=== PATIENT | female | born 1975 | race Caucasian/White ===

== ENCOUNTER 2017-07-04 17:31 | Emergency (ER) | payer OTHER, MEDICARE ==
[2017-07-04] MEDS ORDERED: Sodium Chloride 0.9% 1,000 ML IV ONE (17:38)
[2017-07-04] MEDS ORDERED: Sodium Chloride 0.9% 10 ML Syringe FLUSH PRN (17:38)
[2017-07-04 18:31] LABS: CHLORIDE,CL 101 mmol/L (98-107); SODIUM,NA 138 mmol/L (136-145)
[2017-07-04] MEDS ORDERED: Metoclopramide 10 MG/2 ML SDV IVPUSH ONE (18:38)
[2017-07-04] MEDS ORDERED: diphenhydrAMINE 50 MG/ML SDV IVPUSH ONE (18:40)
--- NOTE | 2017-07-04 18:45 | EDM.PDOC ---
ED HPI GENERAL MEDICAL PROBLEM - General Chief Complaint: Headache Stated Complaint: migraine Time Seen by Provider: 07/04/17 17:33 Source of Information: Reports: Patient, Family, Old Records, RN, RN Notes Reviewed History Limitations: Reports: No Limitations - History of Present Illness INITIAL COMMENTS - FREE TEXT/NARRATIVE: Patient presents the emergency room at [facility] complaining of a headache that started about 3 days ago. The patient states she does have a history of migraines, however this is not documented in her history. The patient states this headache seems to be lasting longer than usual. The patient is on chronic oxycodone at home, which does not seem to be helping. The patient has a long- standing complexed medical history, including sarcoidosis, diabetes, hyperlipidemia, fatty liver disease, hypertension, Guillain-Nair syndrome. The patient has not had any recent changes in medications. The patient states that she feels somewhat nauseated but she also has nausea chronically. The patient denies any visual field disturbances. The patient denies any trouble with ambulation or balance. The patient states her headache is globally in nature. The patient denies any chest pain. The patient has shortness of breath chronically due to her sarcoidosis. The patient was recently seen by a neurologist for results of an EMG which showed demyelinization of the bilateral upper extremities. The patient does have multiple allergies. The patient denies any focal neurological deficits. In reviewing the patient's medical record, her medication list show she is on Topamax, it is unclear she is taking this for chronic headaches or not. [place] PDMP accessed and report reviewed. Onset Date: 07/02/17 Duration: Constant Location: Reports: Head Quality: Reports: Dull, Pressure Severity: Moderate Improves with: Reports: None Worsens with: Reports: Movement Context: Denies: Sick Contact, Trauma Associated Symptoms: Reports: Nausea/Vomiting migraine headache Pain Score (Numeric/FACES): 9 - Related Data Allergies Allergy/AdvReac Type Severity Reaction Status Date / Time acetaminophen [From Vicodin] Allergy Other Verified 04/08/15 10:35 atorvastatin Allergy Other Verified 07/04/17 17:46 fentanyl Allergy Other Verified 04/08/15 10:35 guaifenesin Allergy Other Verified 04/08/15 10:35 hydrocodone bitartrate Allergy Other Verified 04/08/15 10:35 [From Vicodin] hydromorphone Allergy Other Verified 07/04/17 17:46 latex Allergy Cannot Verified 07/04/17 17:46 Remember Penicillins Allergy Anaphylactic Verified 04/08/15 10:35 Shock sesame oil Allergy Other Verified 04/08/15 10:35 Mcydyqv-Wlb-Tqr Reductase Allergy Cannot Verified 07/04/17 17:46 Inhibitor Remember Home Meds: Home Meds Gabapentin [Neurontin] 900 mg PO TID 04/08/15 [History] Benzonatate [Tessalon Perle] 100 mg PO TID PRN 07/04/17 [History] Biotin 1 mg PO DAILY 07/04/17 [History] Cholecalciferol (Vitamin D3) [Vitamin D3] 5,000 unit PO DAILY 07/04/17 [History] ClonazePAM [KlonoPIN] 0.5 mg PO BID PRN 07/04/17 [History] Cyclobenzaprine [Flexeril] 10 mg PO DAILY PRN 07/04/17 [History] EPINEPHrine [Auvi-Q] 0.3 mg IM ONETIME PRN 07/04/17 [History] Folic Acid 1 mg PO DAILY 07/04/17 [History] Furosemide [Lasix] 20 mg PO DAILY 07/04/17 [History] Ibuprofen 800 mg PO Q6H PRN 07/04/17 [History] Lisinopril 10 mg PO DAILY 07/04/17 [History] Polyethylene Glycol 3350 [MiraLAX] 17 gm PO DAILY 07/04/17 [History] Potassium Gluconate [Potassium] 595 mg PO DAILY 07/04/17 [History] Topiramate [Topamax] 50 mg PO BID 07/04/17 [History] buPROPion HCl [Wellbutrin Xl] 150 mg PO DAILY 07/04/17 [History] metFORMIN [Glucophage XR] 1,000 mg PO DAILY 07/04/17 [History] metFORMIN [Glucophage XR] 500 mg PO WITHDINNER 07/04/17 [History] oxyCODONE HCl/Acetaminophen [Percocet 5-325 mg Tablet] 1 each PO Q6H PRN [History] Past Medical History HEENT History: Reports: Allergic Rhinitis, Impaired Vision Cardiovascular History: Reports: Cardiomyopathy, Hypertension, Other (See Below) Other Cardiovascular History: "FLUID AROUND HEART" ON FUROSEMIDE Respiratory History: Reports: Pulmonary Fibrosis, Sleep Apnea, SOB, Other (See Below) Other Respiratory History: sarcoidosis of lung, restrictive lung mechanics due to neuromuscular disease Gastrointestinal History: Reports: Cholelithiasis, Other (See Below) Other Gastrointestinal History: fatty liver disease, non-alcoholic, hepatic steatosis, CONSTRUCTION SCHEDULER History: Reports: Polycystic Ovaries, Other (See Below) Other OB/BYN History: pelvic pain Musculoskeletal History: Reports: Connective Tissue Disease, Other (See Below) Other Musculoskeletal History: carpal tunnel syndrome on left Neurological History: Reports: Headaches, Chronic, Migraines, Other (See Below) Other Neuro History: chronic pain, neuropathy, sarcoid myopathy, diabetic neuropathy, axonal polyneuropathy Psychiatric History: Reports: Anxiety, Depression, Other (See Below) Other Psychiatric History: borderline 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 Endocrine/Metabolic History: Reports: Diabetes, Type II, Obesity/BMI 30+, Vitamin D Deficiency, Other (See Below) Other Endocrine/Metabolic History: elevated serum protein level, low serum cortisol level Hematologic History: Reports: B12 Deficiency Immunologic History: Reports: Immunosuppression Dermatologic History: Reports: None - Past Surgical History Head Surgeries/Procedures: Reports: None Respiratory Surgical History: Reports: Other (See Below) Social & Family History - Tobacco Use Smoking Status *Q: Former Smoker Used Tobacco, but Quit: Yes Month/Year Tobacco Last Used: 2005 Second Hand Smoke Exposure: No - Recreational Drug Use Recreational Drug Use: No Drug Use in Last 12 Months: No ED ROS GENERAL - Review of Systems Review Of Systems: See Below Constitutional: Reports: Chills, Weakness (chronic). Denies: Fever Respiratory: Reports: Shortness of Breath (chronic). Denies: Cough Cardiovascular: Denies: Chest Pain, Palpitations GI/Abdominal: Reports: Nausea. Denies: Abdominal Pain, Diarrhea, Vomiting Skin: Reports: No Symptoms Neurological: Reports: Headache. Denies: Dizziness, Numbness, Paresthesia, Tingling - Physical Exam Exam: See Below Exam Limited By: No Limitations General Appearance: Alert, No Apparent Distress Eye Exam: Bilateral Eye: EOMI, Normal Inspection, PERRL Ears: Normal External Exam, Normal Canal, Normal TMs Head Exam: Atraumatic, Normocephalic Neck: Supple Respiratory/Chest: No Respiratory Distress, Lungs Clear, Normal Breath Sounds Cardiovascular: Normal Peripheral Pulses, Regular Rate, Rhythm GI/Abdominal: Soft, Non-Tender, Abnormal Bowel Sounds (Hypoactive) Neuro Exam (Abbreviated): Alert, Oriented, Other (appears drowsy, possibly from chronic narcotic use) Skin Exam: Warm, Dry, Intact, Normal Color Course - Vital Signs Last Recorded V/S: Last Vital Signs Temp 37.8 C 07/04/17 17:41 Pulse 102 H 07/04/17 17:41 Resp 20 07/04/17 17:41 BP 131/79 07/04/17 19:19 Pulse Ox 100 07/04/17 17:41 - Orders/Labs/Meds Orders: Active Orders 24 hr Category Date Time Status Chest 2V [CR] Stat Exams 07/04/17 17:39 Taken CULTURE BLOOD [BC] Stat Lab 07/04/17 18:01 Received CULTURE BLOOD [BC] Stat Lab 07/04/17 18:09 Received Sodium Chloride 0.9% [Saline Flush] Med 07/04/17 17:38 Active 10 ml FLUSH ASDIRECTED PRN Blood Culture x2 Reflex Set [OM.PC] Stat Oth 07/04/17 17:38 Ordered Peripheral IV Insertion Adult [OM.PC] Routine Oth 07/04/17 17:38 Ordered Medication Orders Sodium Chloride (Saline Flush) 10 ml FLUSH ASDIRECTED PRN PRN Reason: Keep Vein Open Labs: Laboratory Tests 07/04/17 07/04/17 07/04/17 Range/Units 18:01 18:01 18:01 WBC 5.6 (4.0-10.0) x10^3/uL RBC 4.02 (4.00-5.50) x10^6/uL Hgb 12.6 (12.0-16.0) g/dL Hct 36.7 (33.0-47.0) % MCV 91.3 D (78.0-93.0) fL MCH 31.3 (26.0-32.0) pg MCHC 34.3 (32.0-36.0) g/dL RDW Coeff of Shanice 13.3 (10.0-15.0) % Plt Count 208 (130-400) x10^3/uL Neut % (Auto) 51.5 (50.0-80.0) % Lymph % (Auto) 40.1 (25.0-50.0) % [place] % (Auto) 6.6 (2.0-11.0) % Eos % (Auto) 1.6 (0.0-4.0) % Baso % (Auto) 0.2 (0.2-1.2) % Sodium 138 (136-145) mmol/L Potassium 3.6 (3.5-5.1) mmol/L Chloride 101 (98-107) mmol/L Carbon Dioxide 26 (21-32) mmol/L BUN 13 (7-18) mg/dL Creatinine 0.8 (0.55-1.02) mg/dL Est Cr Clr Drug Dosing 78.23 mL/min Estimated GFR (MDRD) > 60 Glucose 159 H (74-106) mg/dL Lactic Acid 1.9 (0.4-2.0) mmol/L Calcium 9.3 (8.5-10.1) mg/dL Magnesium 1.8 (1.8-2.4) mg/dL C-Reactive Protein < 0.2 (<=0.9) mg/dL Meds: Medications Generic Name Dose Route Start Last Admin Trade Name Freq PRN Reason Stop Dose Admin Sodium Chloride 10 ml 07/04/17 17:38 Saline Flush FLUSH ASDIRECTED PRN Keep Vein Open Discontinued Medications Generic Name Dose Route Start Last Admin Trade Name Freq PRN Reason Stop Dose Admin Diphenhydramine HCl 50 mg 07/04/17 18:40 07/04/17 18:44 Benadryl IVPUSH 07/04/17 18:41 50 mg ONETIME ONE Administration Sodium Chloride 1,000 mls @ 999 mls/hr 07/04/17 17:38 07/04/17 18:05 Normal Saline IV 07/04/17 18:38 999 mls/hr ONETIME ONE Administration Chlorpromazine HCl 50 mg/ 52 mls @ 50 mls/hr 07/04/17 18:38 07/04/17 18:58 Sodium Chloride IV 07/04/17 19:40 50 mls/hr ONETIME ONE Administration Metoclopramide HCl 10 mg 07/04/17 18:38 07/04/17 18:54 Reglan IVPUSH 07/04/17 18:39 10 mg ONETIME ONE Administration Departure - Departure Time of Disposition: 20:05 Disposition: Home, Self-Care 01 Condition: Good Clinical Impression: Migraine Qualifiers: Migraine type: unspecified Status migrainosus presence: without status migrainosus Intractability: not intractable Qualified Code(s): G43.909 - Migraine, unspecified, not intractable, without status migrainosus - Discharge Information Instructions: Migraine Headache Referrals: Boubacar Collier MD [Ordering Only Provider] - Forms: ED Department Discharge Additional Instructions: 1. Stay well hydrated and rest 2. No changes with any home medications at this time 3. Recommend follow up with Primary if symptoms persist; may contact through [employer] 4. Call with any questions or concerns - Problem List Review Problem List Initiated/Reviewed/Updated: Yes - My Orders Last 24 Hours: My Active Orders 07/04/17 17:38 Sodium Chloride 0.9% [Saline Flush] 10 ml FLUSH ASDIRECTED PRN Blood Culture x2 Reflex Set [OM.PC] Stat Peripheral IV Insertion Adult [OM.PC] Routine 07/04/17 17:39 Chest 2V [CR] Stat 07/04/17 18:01 CULTURE BLOOD [BC] Stat 07/04/17 18:09 CULTURE BLOOD [BC] Stat - Assessment/Plan Last 24 Hours: My Active Orders 07/04/17 17:38 Sodium Chloride 0.9% [Saline Flush] 10 ml FLUSH ASDIRECTED PRN Blood Culture x2 Reflex Set [OM.PC] Stat Peripheral IV Insertion Adult [OM.PC] Routine 07/04/17 17:39 Chest 2V [CR] Stat 07/04/17 18:01 CULTURE BLOOD [BC] Stat 07/04/17 18:09 CULTURE BLOOD [BC] Stat Assessment:: Acute Migraine on chronic Plan: Labs and x-rays were reviewed with the patient. No acute etiology found for the patient's migraine. The patient was given IV Thorazine, Reglan, and Benadryl. The patient states after the infusion that she still has a headache. Given the patient's complex medical history and multiple medications, I will hold off on making any changes at this point and defer this to the patient's primary care provider. I do not feel that the patient has any acute emergency at this time with her headache As the patient has chronic headaches in the past. I discussed with the patient that she should follow up with her primary care provider if the headaches continue. The patient was hemodynamically stable at discharge.
[2017-07-04 19:19] VITALS: BP 131/79
== END 2017-07-04 20:13 | disposition home or self-care (01) ==
LOC: VM.ED 17:31
DX: G43.909 Migraine, unspecified, not intractable, without status migrainosus (principal); I10 Essential (primary) hypertension; E11.40 Type 2 diabetes mellitus with diabetic neuropathy, unspecified; E11.42 Type 2 diabetes mellitus with diabetic polyneuropathy; Z91.040 Latex allergy status; Z88.0 Allergy status to penicillin; Z88.5 Allergy status to narcotic agent; Z88.8 Allergy status to other drugs, medicaments and biological substances; Z88.6 Allergy status to analgesic agent; Z91.048 Other nonmedicinal substance allergy status; Z79.899 Other long term (current) drug therapy; Z79.84 Long term (current) use of oral hypoglycemic drugs; Z87.891 Personal history of nicotine dependence
CPT/HCPCS: 36415; 71046; 80048; 83605; 83735; 85025; 86140; 87040; 96361; 96365; 96375; 99284; J1200; J2765; J3230; J7030; J7050

== ENCOUNTER 2017-10-22 11:45 | Emergency (ER) | payer OTHER, MEDICARE ==
[2017-10-22] MEDS ORDERED: Prochlorperazine 10 MG/2 ML SDV IV ONE (12:30)
[2017-10-22] MEDS ORDERED: Sodium Chloride 0.9% 1,000 ML IV ONE (12:30)
[2017-10-22] MEDS ORDERED: diphenhydrAMINE 50 MG/ML SDV IVPUSH ONE (12:30)
[2017-10-22] MEDS ORDERED: Ondansetron 4 MG/2 ML SDV IVPUSH ONE (12:30)
[2017-10-22] MEDS ORDERED: Sodium Chloride 0.9% 10 ML Syringe FLUSH PRN (12:30)
--- NOTE | 2017-10-22 13:25 | EDM.PDOC ---
ED HPI GENERAL MEDICAL PROBLEM - General Chief Complaint: Headache Stated Complaint: MIGRAINE Time Seen by Provider: 10/22/17 12:25 Source of Information: Reports: Patient History Limitations: Reports: No Limitations - History of Present Illness INITIAL COMMENTS - FREE TEXT/NARRATIVE: Patient with history of migraine headache presents with the same that started yesterday. Was a recent recipient of IVIG for her multiple comorbid conditions including sarcoidosis. She reports the headache to start in the neck and these are her usual. They are throbbing with pressure to both sides. She states sounds and light worsen the headache. She states she has been told they are tension migraines. No nausea, vomiting, SOB. She does state her right chest hurts worse than it usually does. She describes it as an ache. Onset: Gradual Onset Date: 10/21/17 Duration: Intermittent Location: Reports: Head Severity: Moderate Improves with: Reports: Medication, Rest Worsens with: Reports: Movement Headache Pain Score (Numeric/FACES): 9 - Related Data Allergies Allergy/AdvReac Type Severity Reaction Status Date / Time atorvastatin Allergy Other Verified 10/22/17 11:58 fentanyl Allergy Other Verified 10/22/17 11:58 guaifenesin Allergy Other Verified 10/22/17 11:58 hydrocodone bitartrate Allergy Other Verified 10/22/17 11:58 [From Vicodin] hydromorphone Allergy Other Verified 10/22/17 11:58 latex Allergy Cannot Verified 10/22/17 11:58 Remember Penicillins Allergy Anaphylactic Verified 10/22/17 11:58 Shock sesame oil Allergy Other Verified 10/22/17 11:58 Nbscirr-Vjd-Obq Reductase Allergy Cannot Verified 10/22/17 11:58 Inhibitor Remember acetaminophen [From Vicodin] AdvReac Intermediate Other Verified 10/22/17 11:58 Home Meds: Home Meds Gabapentin [Neurontin] 900 mg PO TID 04/08/15 [History] Biotin 1 mg PO DAILY 07/04/17 [History] Cholecalciferol (Vitamin D3) [Vitamin D3] 5,000 unit PO DAILY 07/04/17 [History] ClonazePAM [KlonoPIN] 0.5 mg PO BID PRN 07/04/17 [History] Cyclobenzaprine [Flexeril] 10 mg PO DAILY PRN 07/04/17 [History] EPINEPHrine [Auvi-Q] 0.3 mg IM ONETIME PRN 07/04/17 [History] Folic Acid 1 mg PO DAILY 07/04/17 [History] Furosemide [Lasix] 20 mg PO DAILY 07/04/17 [History] Ibuprofen 800 mg PO Q6H PRN 07/04/17 [History] Lisinopril 10 mg PO DAILY 07/04/17 [History] Polyethylene Glycol 3350 [MiraLAX] 17 gm PO DAILY PRN 07/04/17 [History] Potassium Gluconate [Potassium] 595 mg PO DAILY 07/04/17 [History] Topiramate [Topamax] 50 mg PO BID 07/04/17 [History] buPROPion HCl [Wellbutrin Xl] 150 mg PO DAILY 07/04/17 [History] metFORMIN [Glucophage XR] 500 mg PO BID 07/04/17 [History] oxyCODONE HCl/Acetaminophen [Percocet 5-325 mg Tablet] 1 each PO Q6H PRN [History] Past Medical History HEENT History: Reports: Allergic Rhinitis, Impaired Vision Cardiovascular History: Reports: Cardiomyopathy, Hypertension, Other (See Below) Other Cardiovascular History: "FLUID AROUND HEART" ON FUROSEMIDE Respiratory History: Reports: Pulmonary Fibrosis, Sleep Apnea, SOB, Other (See Below) Other Respiratory History: sarcoidosis of lung, restrictive lung mechanics due to neuromuscular disease Gastrointestinal History: Reports: Cholelithiasis, Other (See Below) Other Gastrointestinal History: fatty liver disease, non-alcoholic, hepatic steatosis, LEAK PATCHER History: Reports: Polycystic Ovaries, Other (See Below) Other LEAK PATCHER History: pelvic pain Musculoskeletal History: Reports: Connective Tissue Disease, Other (See Below) Other Musculoskeletal History: carpal tunnel syndrome on left Neurological History: Reports: Headaches, Chronic, Migraines, Other (See Below) Other Neuro History: chronic pain, neuropathy, sarcoid myopathy, diabetic neuropathy, axonal polyneuropathy Psychiatric History: Reports: Anxiety, Depression, Other (See Below) Other Psychiatric History: borderline 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 Endocrine/Metabolic History: Reports: Diabetes, Type II, Obesity/BMI 30+, Vitamin D Deficiency, Other (See Below) Other Endocrine/Metabolic History: elevated serum protein level, low serum cortisol level Hematologic History: Reports: B12 Deficiency Immunologic History: Reports: Immunosuppression Dermatologic History: Reports: None - Past Surgical History Head Surgeries/Procedures: Reports: None Respiratory Surgical History: Reports: Other (See Below) ED ROS GENERAL - Review of Systems Review Of Systems: See Below Constitutional: Reports: No Symptoms HEENT: Reports: No Symptoms Respiratory: Reports: No Symptoms Cardiovascular: Reports: Chest Pain (described as chest pressure, worse with inspiration) Endocrine: Reports: No Symptoms GI/Abdominal: Reports: No Symptoms : Reports: No Symptoms Musculoskeletal: Reports: No Symptoms Skin: Reports: No Symptoms Neurological: Reports: Headache Psychiatric: Reports: No Symptoms Hematologic/Lymphatic: Reports: No Symptoms Immunologic: Reports: No Symptoms - Physical Exam Exam: See Below Exam Limited By: No Limitations General Appearance: Alert, WD/WN, Mild Distress Eye Exam: Bilateral Eye: EOMI, PERRL Ears: Normal TMs Head Exam: Atraumatic, Normocephalic Neck: Normal Inspection, Supple, Non-Tender, Full Range of Motion Respiratory/Chest: No Respiratory Distress, Lungs Clear, Normal Breath Sounds, No Accessory Muscle Use, Chest Non-Tender Cardiovascular: Normal Peripheral Pulses, Regular Rate, Rhythm, No Edema, No Gallop, No JVD, No Murmur, No Rub GI/Abdominal: Normal Bowel Sounds, Soft, Non-Tender, No Organomegaly, No Distention, No Abnormal Bruit, No Mass Neuro Exam (Abbreviated): Alert, Oriented, CN II-XII Intact, Normal Cognition, Normal Gait, Normal Reflexes, No Motor/Sensory Deficits Back Exam: Normal Inspection, Full Range of Motion, NT Extremities: Normal Inspection Psychiatric: Normal Affect, Normal Mood Skin Exam: Warm, Dry, Intact, Normal Color, No Rash Course - Vital Signs Last Recorded V/S: Last Vital Signs Temp 37.3 C 10/22/17 11:50 Pulse 95 10/22/17 14:43 Resp 16 10/22/17 14:43 BP 138/85 10/22/17 14:43 Pulse Ox 98 10/22/17 14:43 - Orders/Labs/Meds Meds: Medications Discontinued Medications Generic Name Dose Route Start Last Admin Trade Name Freq PRN Reason Stop Dose Admin Diphenhydramine HCl 25 mg 10/22/17 12:30 10/22/17 13:20 Benadryl IVPUSH 10/22/17 12:31 25 mg ONETIME ONE Administration Sodium Chloride 1,000 mls @ 999 mls/hr 10/22/17 12:30 10/22/17 13:13 Normal Saline IV 10/22/17 13:30 999 mls/hr ONETIME ONE Administration Ondansetron HCl 4 mg 10/22/17 12:30 10/22/17 13:17 Zofran IVPUSH 10/22/17 12:31 4 mg ONETIME ONE Administration Prochlorperazine Edisylate 5 mg 10/22/17 12:30 10/22/17 13:25 Compazine IV 10/22/17 12:31 5 mg ONETIME ONE Administration Sodium Chloride 10 ml 10/22/17 12:30 Saline Flush FLUSH ASDIRECTED PRN Keep Vein Open Departure - Departure Time of Disposition: 15:35 Disposition: Home, Self-Care 01 Condition: Good Clinical Impression: Migraine - Discharge Information Instructions: Recurrent Migraine Headache, [id number] Forms: ED Department Discharge Additional Instructions: Please avoid triggers for your migraine headaches. Stay well hydrated. Mention the headache to the doctor who gave you the IVIG to determine what , if anything should be done Take ibuprofen, tylenol, benadryl as needed for pain and to help you sleep. If you have any additiona concerns please take them to your provider. - Problem List & Annotations (1) Migraine SNOMED Code(s): 28204310 Code(s): G43.909 - MIGRAINE, UNSP, NOT INTRACTABLE, WITHOUT STATUS MIGRAINOSUS Status: Acute Priority: Low Qualifiers: Migraine type: without aura Status migrainosus presence: without status migrainosus Intractability: not intractable Qualified Code(s): G43.009 - Migraine without aura, not intractable, without status migrainosus - Assessment/Plan Assessment:: migraine headache Plan: Please avoid triggers for your migraine headaches. Stay well hydrated. Mention the headache to the doctor who gave you the IVIG to determine what , if anything should be done Take ibuprofen, tylenol, benadryl as needed for pain and to help you sleep. If you have any additiona concerns please take them to your provider.
[2017-10-22 14:44] VITALS: BP 138/85
== END 2017-10-22 15:35 | disposition home or self-care (01) ==
LOC: VM.ED 11:45
DX: G43.909 Migraine, unspecified, not intractable, without status migrainosus (principal); F32.9 Major depressive disorder, single episode, unspecified; F41.9 Anxiety disorder, unspecified; Z88.8 Allergy status to other drugs, medicaments and biological substances; Z79.84 Long term (current) use of oral hypoglycemic drugs; Z79.899 Other long term (current) drug therapy
CPT/HCPCS: 71046; 96361; 96374; 96375; 99284; J0780; J1200; J2405; J7030

== ENCOUNTER 2017-10-25 16:21 | Observation (INO) | payer OTHER, MEDICARE ==
[2017-10-25] MEDS ORDERED: Ondansetron 4 MG/2 ML SDV IVPUSH ONE (16:26)
[2017-10-25] MEDS ORDERED: Sodium Chloride 0.9% 10 ML Syringe FLUSH PRN (16:26)
[2017-10-25] MEDS ORDERED: Sodium Chloride 0.9% 1,000 ML IV ONE (16:26)
[2017-10-25] MEDS ORDERED: Morphine 2 MG/ML Syringe IVPUSH ONE (16:45)
[2017-10-25 17:31] LABS: CHLORIDE,CL 101 mmol/L (98-107); SODIUM,NA 136 mmol/L (136-145)
[2017-10-25 17:32] LABS: ANION GAP 16.6 mmol/L (10-20)
--- NOTE | 2017-10-25 19:10 | EDM.PDOC ---
ED HPI GENERAL MEDICAL PROBLEM - General Chief Complaint: Abdominal Pain Stated Complaint: ABDOMINAL PAINS Time Seen by Provider: 10/25/17 16:23 Source of Information: Reports: Patient History Limitations: Reports: No Limitations - History of Present Illness INITIAL COMMENTS - FREE TEXT/NARRATIVE: I saw patient on Monday with complaints of migraine headache and chest pain. Treated for migraine headache and sent home. She does have sarcoidosis and received treatment last week of IVIG. Complaints today of abdominal pain, lower right rib pain. She has some nausea. Her headache is much better but is still present. Poor appetite over the last few days. Not drinking well either. Denies fever, chills, night sweats. No blood in urine or stool. Onset: Gradual Duration: Getting Worse, Intermittent Location: Reports: Chest, Abdomen Quality: Reports: Ache Severity: Moderate Improves with: Reports: None Worsens with: Reports: None Associated Symptoms: Reports: Headaches, Loss of Appetite Right Abdomen Pain Score (Numeric/FACES): 10 - Related Data Allergies Allergy/AdvReac Type Severity Reaction Status Date / Time atorvastatin Allergy Other Verified 10/25/17 16:47 fentanyl Allergy Other Verified 10/25/17 16:47 guaifenesin Allergy Other Verified 10/25/17 16:47 hydrocodone bitartrate Allergy Other Verified 10/25/17 16:47 [From Vicodin] hydromorphone Allergy Other Verified 10/25/17 16:47 latex Allergy Cannot Verified 10/25/17 16:47 Remember Penicillins Allergy Anaphylactic Verified 10/25/17 16:47 Shock sesame oil Allergy Other Verified 10/25/17 16:47 [id number] Reductase Allergy Cannot Verified 10/25/17 16:47 Inhibitor Remember acetaminophen [From Vicodin] AdvReac Intermediate Other Verified 10/25/17 16:47 Home Meds: Home Meds Gabapentin [Neurontin] 1,200 mg PO TID 04/08/15 [History] Biotin 1 mg PO DAILY 07/04/17 [History] Cholecalciferol (Vitamin D3) [Vitamin D3] 5,000 unit PO DAILY 07/04/17 [History] ClonazePAM [KlonoPIN] 0.5 mg PO BID PRN 07/04/17 [History] Cyclobenzaprine [Flexeril] 10 mg PO DAILY PRN 07/04/17 [History] EPINEPHrine [Auvi-Q] 0.3 mg IM ONETIME PRN 07/04/17 [History] Folic Acid 1 mg PO DAILY 07/04/17 [History] Furosemide [Lasix] 20 mg PO DAILY 07/04/17 [History] Ibuprofen 800 mg PO Q6H PRN 07/04/17 [History] Lisinopril 10 mg PO BEDTIME 07/04/17 [History] Polyethylene Glycol 3350 [MiraLAX] 17 gm PO DAILY PRN 07/04/17 [History] Potassium Gluconate [Potassium] 595 mg PO BEDTIME 07/04/17 [History] Topiramate [Topamax] 50 mg PO BID 07/04/17 [History] buPROPion HCl [Wellbutrin Xl] 150 mg PO DAILY 07/04/17 [History] metFORMIN [Glucophage XR] 500 mg PO BID 07/04/17 [History] oxyCODONE HCl/Acetaminophen [Percocet 5-325 mg Tablet] 1 each PO Q6H PRN [History] Past Medical History HEENT History: Reports: Allergic Rhinitis, Impaired Vision Cardiovascular History: Reports: Cardiomyopathy, Hypertension, Other (See Below) Other Cardiovascular History: "FLUID AROUND HEART" ON FUROSEMIDE Respiratory History: Reports: Pulmonary Fibrosis, Sleep Apnea, SOB, Other (See Below) Other Respiratory History: sarcoidosis of lung, restrictive lung mechanics due to neuromuscular disease Gastrointestinal History: Reports: Cholelithiasis, Other (See Below) Other Gastrointestinal History: fatty liver disease, non-alcoholic, hepatic steatosis, [employer]AL [employer] History: Reports: Polycystic Ovaries, Other (See Below) 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 Musculoskeletal History: Reports: Connective Tissue Disease, Other (See Below) Other Musculoskeletal History: carpal tunnel syndrome on left Neurological History: Reports: Headaches, Chronic, Migraines, Other (See Below) Other Neuro History: chronic pain, neuropathy, sarcoid myopathy, diabetic neuropathy, axonal polyneuropathy Psychiatric History: Reports: Anxiety, Depression, Other (See Below) Other Psychiatric History: borderline 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 Endocrine/Metabolic History: Reports: Diabetes, Type II, Obesity/BMI 30+, Vitamin D Deficiency, Other (See Below) Other Endocrine/Metabolic History: elevated serum protein level, low serum cortisol level Hematologic History: Reports: B12 Deficiency Immunologic History: Reports: Immunosuppression Dermatologic History: Reports: None - Past Surgical History Head Surgeries/Procedures: Reports: None Respiratory Surgical History: Reports: Other (See Below) ED ROS GENERAL - Review of Systems Review Of Systems: See Below Constitutional: Reports: No Symptoms HEENT: Reports: No Symptoms Respiratory: Reports: No Symptoms Cardiovascular: Reports: No Symptoms Endocrine: Reports: No Symptoms GI/Abdominal: Reports: Abdominal Pain : Reports: No Symptoms Musculoskeletal: Reports: No Symptoms Skin: Reports: No Symptoms Neurological: Reports: Headache Psychiatric: Reports: No Symptoms Hematologic/Lymphatic: Reports: No Symptoms Immunologic: Reports: No Symptoms ED EXAM, GENERAL - Physical Exam Exam: See Below Exam Limited By: No Limitations General Appearance: Alert, WD/WN, Moderate Distress Eye Exam: Bilateral Eye: EOMI, Normal Inspection, PERRL Ears: Normal TMs Nose: Normal Inspection, Normal Mucosa, No Blood Throat/Mouth: Normal Inspection, Normal Lips, Normal Teeth, Normal Gums, Normal Oropharynx, Normal Voice, No Airway Compromise Head: Atraumatic, Normocephalic Neck: Normal Inspection, Supple, Non-Tender, Full Range of Motion Respiratory/Chest: No Respiratory Distress, Lungs Clear, No Accessory Muscle Use , Chest Non-Tender, Decreased Breath Sounds Cardiovascular: Normal Peripheral Pulses, Regular Rate, Rhythm, No Edema, No Gallop, No JVD, No Murmur, No Rub Peripheral Pulses: 2+: Posterior Tibial (L), Posterior Tibial (R), Dorsalis Pedis (L), Dorsalis Pedis (R) GI/Abdominal: Normal Bowel Sounds, Soft, Non-Tender, No Organomegaly, No Distention, No Abnormal Bruit, No Mass Extremities: Normal Inspection, Normal Range of Motion, Non-Tender, Normal Capillary Refill, No Pedal Edema Neurological: Alert, Oriented, CN II-XII Intact, Normal Cognition, Normal Gait, Normal Reflexes, No Motor/Sensory Deficits Psychiatric: Normal Affect, Normal Mood Skin Exam: Warm, Dry, Intact, Normal Color, No Rash Lymphatic: No Adenopathy Course - Vital Signs Last Recorded V/S: Last Vital Signs Temp 37.0 C 10/25/17 19:20 Pulse 85 10/25/17 22:00 Resp 20 10/25/17 22:00 BP 149/96 H 10/25/17 23:37 Pulse Ox 98 10/25/17 22:00 - Orders/Labs/Meds Orders: Active Orders 24 hr Category Date Time Status Abdomen Pelvis w Cont [CT] Stat Exams 10/25/17 16:26 Stop Req Abdomen Pelvis wo Cont [CT] Stat Exams 10/25/17 16:59 Taken Head wo Cont [CT] Stat Exams 10/25/17 16:42 Taken CULTURE BLOOD [BC] Stat Lab 10/25/17 17:00 Received CULTURE BLOOD [BC] Stat Lab 10/25/17 17:05 Received UA W/MICROSCOPIC [URIN] Stat Lab 10/25/17 20:30 Ordered Sodium Chloride 0.9% [Saline Flush] Med 10/25/17 16:26 Active 10 ml FLUSH ASDIRECTED PRN Blood Culture x2 Reflex Set [OM.PC] Stat Oth 10/25/17 16:26 Ordered Saline Lock Insert [OM.PC] Routine Oth 10/25/17 16:26 Ordered Medication Orders Bupropion HCl (Wellbutrin Xl) 150 mg PO DAILY [facility] Cholecalciferol (Vitamin D3) 5,000 units PO DAILY [facility] Clonazepam (Klonopin) 0.5 mg PO BID PRN PRN Reason: Anxiety Last Admin: 10/25/17 23:36 Dose: 0.5 mg Cyclobenzaprine HCl (Flexeril) 10 mg PO DAILY PRN PRN Reason: Muscle Spasm Last Admin: 10/25/17 23:37 Dose: 10 mg Folic Acid (Folic Acid) 1 mg PO DAILY [facility] Furosemide (Lasix) 20 mg PO DAILY [facility] Gabapentin (Neurontin) 1,200 mg PO TID [facility] Last Admin: 10/25/17 23:35 Dose: 1,200 mg Sodium Chloride (Normal Saline) 1,000 mls @ 125 mls/hr IV ASDIRECTED [facility] Last Admin: 10/25/17 19:53 Dose: 125 mls/hr Ibuprofen (Motrin) 800 mg PO Q6H PRN PRN Reason: PAIN Lisinopril (Prinivil) 10 mg PO BEDTIME [facility] Last Admin: 10/25/17 23:37 Dose: 10 mg Metformin HCl (Glucophage) 500 mg PO BIDMEALS [facility] Last Admin: 10/25/17 23:36 Dose: 500 mg Morphine Sulfate (Morphine) 2 mg IVPUSH Q2H PRN PRN Reason: Pain Last Admin: 10/25/17 22:14 Dose: 2 mg Non-Formulary Medication (Biotin [Biotin]) 1 mg PO DAILY [facility] Non-Formulary Medication (Potassium Gluconate [Potassium]) 595 mg PO BEDTIME [facility] Ondansetron HCl (Zofran) 4 mg IVPUSH Q8H PRN PRN Reason: Nausea Last Admin: 10/25/17 22:54 Dose: 4 mg Oxycodone/Acetaminophen (Percocet 325-5 Mg) 1 tab PO Q6H PRN PRN Reason: Pain Polyethylene Glycol (Miralax) 17 gm PO DAILY PRN PRN Reason: Constipation Senna/Docusate Sodium (Senna Plus) 1 tab PO BID PRN PRN Reason: Constipation Sodium Chloride (Saline Flush) 10 ml FLUSH ASDIRECTED PRN PRN Reason: Keep Vein Open Last Admin: 10/25/17 19:54 Dose: 10 ml Topiramate (Topamax) 50 mg PO BID JOSE Last Admin: 10/25/17 23:36 Dose: 50 mg Labs: Laboratory Tests 10/25/17 10/25/17 10/25/17 Range/Units 17:00 17:00 17:00 WBC 6.0 (4.0-10.0) x10^3/uL RBC 4.42 (4.00-5.50) x10^6/uL Hgb 13.4 (12.0-16.0) g/dL Hct 39.7 (33.0-47.0) % MCV 89.8 (78.0-93.0) fL MCH 30.3 (26.0-32.0) pg MCHC 33.8 (32.0-36.0) g/dL RDW Coeff of Shanice 13.6 (10.0-15.0) % Plt Count 248 (130-400) x10^3/uL Neut % (Auto) 47.7 L (50.0-80.0) % Lymph % (Auto) 41.6 (25.0-50.0) % Mineral % (Auto) 7.2 (2.0-11.0) % Eos % (Auto) 3.0 (0.0-4.0) % Baso % (Auto) 0.5 (0.2-1.2) % Sodium 136 (136-145) mmol/L Potassium 3.6 (3.5-5.1) mmol/L Chloride 101 (98-107) mmol/L Carbon Dioxide 22 (21-32) mmol/L Anion Gap 16.6 (10-20) mmol/L BUN 8 (7-18) mg/dL Creatinine 0.8 (0.55-1.02) mg/dL Est Cr Clr Drug Dosing TNP Estimated GFR (MDRD) > 60 Glucose 135 H (74-106) mg/dL Lactic Acid 3.6 H* (0.4-2.0) mmol/L Calcium 9.3 (8.5-10.1) mg/dL Corrected Calcium 8.98 (8.5-10.1) mg/dL Total Bilirubin 0.4 (0.2-1.0) mg/dL AST 74 H (15-37) U/L ALT 95 H (14-59) U/L Alkaline Phosphatase 68 (46-116) U/L C-Reactive Protein < 0.2 (<=0.9) mg/dL Total Protein 9.7 H (6.4-8.2) g/dL Albumin 4.4 (3.4-5.0) g/dL Globulin 5.3 Albumin/Globulin Ratio 0.83 Amylase 62 (25-115) U/L Meds: Medications Generic Name Dose Route Start Last Admin Trade Name Freq PRN Reason Stop Dose Admin Bupropion HCl 150 mg 10/26/17 08:00 Wellbutrin Xl PO DAILY [facility] Cholecalciferol 5,000 units 10/26/17 08:00 Vitamin D3 PO DAILY [facility] Clonazepam 0.5 mg 10/25/17 21:48 10/25/17 23:36 Klonopin PO 0.5 mg BID PRN Administration Anxiety Cyclobenzaprine HCl 10 mg 10/25/17 21:48 10/25/17 23:37 Flexeril PO 10 mg DAILY PRN Administration Muscle Spasm Folic Acid 1 mg 10/26/17 08:00 Folic Acid PO DAILY JOSE Furosemide 20 mg 10/26/17 08:00 Lasix PO DAILY [facility] Gabapentin 1,200 mg 10/25/17 22:30 10/25/17 23:35 Neurontin PO 1,200 mg TID JOSE Administration Sodium Chloride 1,000 mls @ 125 mls/hr 10/25/17 19:30 10/25/17 19:53 Normal Saline IV 125 mls/hr ASDIRECTED JOSE Administration Ibuprofen 800 mg 10/25/17 22:14 Motrin PO Q6H PRN PAIN Lisinopril 10 mg 10/25/17 22:45 10/25/17 23:37 Prinivil PO 10 mg BEDTIME JOSE Administration Metformin HCl 500 mg 10/25/17 22:45 10/25/17 23:36 Glucophage PO 500 mg BIDMEALS [facility] Administration Morphine Sulfate 2 mg 10/25/17 20:06 10/25/17 22:14 Morphine IVPUSH 2 mg Q2H PRN Administration Pain Non-Formulary Medication 1 mg 10/26/17 08:00 Biotin [Biotin] PO DAILY [facility] Non-Formulary Medication 595 mg 10/26/17 20:00 Potassium Gluconate [Potassium] PO BEDTIME [facility] Ondansetron HCl 4 mg 10/25/17 22:32 10/25/17 22:54 Zofran IVPUSH 4 mg Q8H PRN Administration Nausea Oxycodone/Acetaminophen 1 tab 10/25/17 21:48 Percocet 325-5 Mg PO Q6H PRN Pain Polyethylene Glycol 17 gm 10/25/17 21:48 Miralax PO DAILY PRN Constipation Senna/Docusate Sodium 1 tab 10/25/17 19:20 Senna Plus PO BID PRN Constipation Sodium Chloride 10 ml 10/25/17 16:26 10/25/17 19:54 Saline Flush FLUSH 10 ml ASDIRECTED PRN Administration Keep Vein Open Topiramate 50 mg 10/25/17 22:45 10/25/17 23:36 Topamax PO 50 mg BID [facility] Administration Discontinued Medications Generic Name Dose Route Start Last Admin Trade Name Freq PRN Reason Stop Dose Admin Gabapentin 1,200 mg 10/26/17 08:00 Neurontin PO TID [facility] Hydromorphone HCl 0.5 mg 10/25/17 19:20 Dilaudid IVPUSH Q2H PRN Pain (severe 7-10) Sodium Chloride 1,000 mls @ 999 mls/hr 10/25/17 16:26 10/25/17 16:53 Normal Saline IV 10/25/17 17:26 999 mls/hr ONETIME ONE Administration Lisinopril 10 mg 10/26/17 20:00 Prinivil PO BEDTIME [facility] Metformin HCl 500 mg 10/26/17 08:00 Glucophage PO BIDMEALS [facility] Morphine Sulfate 2 mg 10/25/17 16:45 07/04/18 17:00 Morphine IVPUSH 10/25/17 16:46 2 mg ONETIME ONE Administration Ondansetron HCl 4 mg 10/25/17 16:26 10/25/17 16:57 Zofran IVPUSH 10/25/17 16:27 4 mg ONETIME ONE Administration Topiramate 50 mg 10/26/17 08:00 Topamax PO BID JOSE Departure - Departure Time of Disposition: 19:05 Disposition: Refer to Observation Condition: Good Clinical Impression: Lactic acidosis, Migraine - Discharge Information - Problem List & Annotations (1) Lactic acidosis SNOMED Code(s): 27071488 Code(s): E87.2 - ACIDOSIS Status: Acute Priority: Medium Current Visit : Yes Onset Date: ~10/25/17 (2) Migraine SNOMED Code(s): 24106566 Code(s): G43.909 - MIGRAINE, UNSP, NOT INTRACTABLE, WITHOUT STATUS MIGRAINOSUS Status: Acute Priority: Low Current Visit: No Qualifiers: Migraine type: without aura Status migrainosus presence: without status migrainosus Intractability: not intractable Qualified Code(s): G43.009 - Migraine without aura, not intractable, without status migrainosus - Problem List Review Problem List Initiated/Reviewed/Updated: Yes - My Orders Last 24 Hours: My Active Orders 10/25/17 16:26 Abdomen Pelvis w Cont [CT] Stat Sodium Chloride 0.9% [Saline Flush] 10 ml FLUSH ASDIRECTED PRN Blood Culture x2 Reflex Set [OM.PC] Stat Saline Lock Insert [OM.PC] Routine 10/25/17 16:42 Head wo Cont [CT] Stat 10/25/17 16:59 Abdomen Pelvis wo Cont [CT] Stat 10/25/17 17:00 CULTURE BLOOD [BC] Stat 10/25/17 17:05 CULTURE BLOOD [BC] Stat 10/25/17 20:30 UA W/MICROSCOPIC [URIN] Stat - Assessment/Plan Last 24 Hours: My Active Orders 10/25/17 16:26 Abdomen Pelvis w Cont [CT] Stat Sodium Chloride 0.9% [Saline Flush] 10 ml FLUSH ASDIRECTED PRN Blood Culture x2 Reflex Set [OM.PC] Stat Saline Lock Insert [OM.PC] Routine 07/04/18 16:42 Head wo Cont [CT] Stat 10/25/17 16:59 Abdomen Pelvis wo Cont [CT] Stat 10/25/17 17:00 CULTURE BLOOD [BC] Stat 10/25/17 17:05 CULTURE BLOOD [BC] Stat 10/25/17 20:30 UA W/MICROSCOPIC [URIN] Stat Assessment:: lactic acidosis Plan: PLEASE USE ER HISTORY AND PHYSICAL FOR ADMISSION H & P PLAN 1. lactic acidosis fluid resuscitation repeat lactic acid monitor glucose levels monitor CPK levels 2. Migraine fluid resuscitation zofran for nausea percocet for pain as needed benadryl Will repeat labs in AM, monitor in observation. Possible discharge tomorrow
[2017-10-25] MEDS ORDERED: HYDROmorphone 1 MG/ML Syringe IVPUSH PRN (19:20)
[2017-10-25] MEDS: Sodium Chloride 0.9% 1,000 ML IV SCH (19:53)
[2017-10-25] MEDS ORDERED: Polyethylene Glycol 3350 Powder 17 GM Packet PO PRN (21:48)
[2017-10-25] MEDS: Morphine 2 MG/ML Syringe IVPUSH PRN (22:14)
[2017-10-25] MEDS ORDERED: Ibuprofen 200 MG Tab PO PRN (22:14)
[2017-10-25] MEDS: Ondansetron 4 MG/2 ML SDV IVPUSH PRN (22:54)
[2017-10-25] MEDS: Gabapentin 300 MG Cap PO SCH (23:35)
[2017-10-25] MEDS: ClonazePAM 0.5 MG Tab PO PRN (23:36)
[2017-10-25] MEDS: metFORMIN 500 MG Tab PO SCH (23:36)
[2017-10-25] MEDS: Topiramate 50 MG Tab PO SCH (23:36)
[2017-10-25] MEDS: Cyclobenzaprine 10 MG Tab PO PRN (23:37)
[2017-10-25] MEDS: Lisinopril 10 MG Tab PO SCH (23:37)
[2017-10-26] MEDS: Sodium Chloride 0.9% 1,000 ML IV SCH (04:01)
[2017-10-26] MEDS: Acetaminophen/oxyCODONE 325-5 MG Tab PO PRN ×2 (05:31→11:36)
[2017-10-26] MEDS: Morphine 2 MG/ML Syringe IVPUSH PRN ×2 (07:04→20:39)
[2017-10-26] MEDS: Ondansetron 4 MG/2 ML SDV IVPUSH PRN ×2 (07:06→20:38)
[2017-10-26 07:18] LABS: CHLORIDE,CL 103 mmol/L (98-107); SODIUM,NA 138 mmol/L (136-145)
[2017-10-26 07:27] LABS: ANION GAP 13.6 mmol/L (10-20)
[2017-10-26] MEDS: Gabapentin 300 MG Cap PO SCH ×3 (07:48→20:17)
[2017-10-26] MEDS: Cholecalciferol (Vitamin D3) 1,000 Unit Tab PO SCH (07:49)
[2017-10-26] MEDS: Furosemide 20 MG Tab PO SCH (07:51)
[2017-10-26] MEDS: buPROPion 150 MG Tab.ER PO SCH (07:51)
[2017-10-26] MEDS: Folic Acid 1 MG Tab PO SCH (07:51)
[2017-10-26] MEDS: Topiramate 50 MG Tab PO SCH ×2 (07:52→20:14)
[2017-10-26] MEDS: metFORMIN 500 MG Tab PO SCH ×2 (07:52→17:04)
[2017-10-26] MEDS ORDERED: Topiramate 50 MG Tab PO SCH (08:00)
[2017-10-26] MEDS ORDERED: metFORMIN 500 MG Tab PO SCH (08:00)
[2017-10-26] MEDS ORDERED: Gabapentin 300 MG Cap PO SCH (08:00)
[2017-10-26] MEDS ORDERED: Magnesium Sulfate/Water 2 GM in Premix Bag 1 BAG IV ONE (09:51)
[2017-10-26] MEDS ORDERED: Magnesium Sulfate/Water 50 ML IV ONE (09:52)
[2017-10-26] MEDS: Lactated Ringers 1,000 ML IV SCH ×2 (10:11→18:08)
[2017-10-26] MEDS: Pantoprazole 40 MG Tab.CR PO SCH ×2 (10:40→17:04)
[2017-10-26] MEDS: BIOTIN 1 MG PO SCH (10:59)
[2017-10-26] MEDS ORDERED: Metoclopramide 10 MG/2 ML SDV IVPUSH ONE (13:46)
--- NOTE | 2017-10-26 16:07 | PCM.PN ---
- General Info Date of Service: 10/26/17 Admission Dx/Problem (Free Text): Pt. states she is feeling better. She was nauseated and did vomit and was given reglan 10mg IV. She states she is feeling better. Her magnesium is being repleted and she continues to be on LR at 125ml/hr. She states that she ate a large lunch today and is tolerating this. States that the posterior chest wall and epigastric discomfort are improving. Functional Status: Reports: Pain Controlled, Tolerating Diet - Review of Systems General: Reports: Fatigue HEENT: Reports: No Symptoms Pulmonary: Reports: Pleuritic Chest Pain. Denies: Shortness of Breath, Sputum, Hemoptysis Cardiovascular: Reports: No Symptoms Gastrointestinal: Reports: Nausea, Vomiting Genitourinary: Reports: No Symptoms Musculoskeletal: Reports: No Symptoms Skin: Reports: No Symptoms Neurological: Reports: No Symptoms Psychiatric: Reports: No Symptoms - Patient Data Vitals - Most Recent: Last Vital Signs Temp 36.3 C 10/26/17 14:00 Pulse 85 10/26/17 14:00 Resp 18 10/26/17 14:00 BP 112/67 10/26/17 14:00 Pulse Ox 98 10/26/17 14:00 Weight - Most Recent: 76.204 kg I&O - Last 24 Hours: Intake & Output 10/26/17 10/26/17 10/26/17 06:59 14:59 22:59 Intake Total 1569 720 Output Total 900 2550 Balance 669 -1830 Lab Results Last 24 Hours: Laboratory Results - last 24 hr 10/25/17 10/25/17 10/25/17 Range/Units 17:00 17:00 17:00 WBC 6.0 (4.0-10.0) x10^3/uL RBC 4.42 (4.00-5.50) x10^6/uL Hgb 13.4 (12.0-16.0) g/dL Hct 39.7 (33.0-47.0) % MCV 89.8 (78.0-93.0) fL MCH 30.3 (26.0-32.0) pg MCHC 33.8 (32.0-36.0) g/dL RDW Coeff of Shanice 13.6 (10.0-15.0) % Plt Count 248 (130-400) x10^3/uL Neut % (Auto) 47.7 L (50.0-80.0) % Lymph % (Auto) 41.6 (25.0-50.0) % Mcdonald % (Auto) 7.2 (2.0-11.0) % Eos % (Auto) 3.0 (0.0-4.0) % Baso % (Auto) 0.5 (0.2-1.2) % Sodium 136 (136-145) mmol/L Potassium 3.6 (3.5-5.1) mmol/L Chloride 101 (98-107) mmol/L Carbon Dioxide 22 (21-32) mmol/L Anion Gap 16.6 (10-20) mmol/L BUN 8 (7-18) mg/dL Creatinine 0.8 (0.55-1.02) mg/dL Est Cr Clr Drug Dosing TNP Estimated GFR (MDRD) > 60 Glucose 135 H (74-106) mg/dL POC Glucose (74-106) mg/dL Lactic Acid 3.6 H* (0.4-2.0) mmol/L Calcium 9.3 (8.5-10.1) mg/dL Corrected Calcium 8.98 (8.5-10.1) mg/dL Phosphorus (2.6-4.7) mg/dL Magnesium (1.8-2.4) mg/dL Total Bilirubin 0.4 (0.2-1.0) mg/dL AST 74 H (15-37) U/L ALT 95 H (14-59) U/L Alkaline Phosphatase 68 (46-116) U/L Creatine Kinase (26-192) U/L Troponin I (<=0.056) ng/mL C-Reactive Protein < 0.2 (<=0.9) mg/dL Total Protein 9.7 H (6.4-8.2) g/dL Albumin 4.4 (3.4-5.0) g/dL Globulin 5.3 Albumin/Globulin Ratio 0.83 Amylase 62 (25-115) U/L 10/25/17 10/25/17 10/25/17 Range/Units 23:28 23:28 23:32 WBC (4.0-10.0) x10^3/uL RBC (4.00-5.50) x10^6/uL Hgb (12.0-16.0) g/dL Hct (33.0-47.0) % MCV (78.0-93.0) fL MCH (26.0-32.0) pg MCHC (32.0-36.0) g/dL RDW Coeff of Shanice (10.0-15.0) % Plt Count (130-400) x10^3/uL Neut % (Auto) (50.0-80.0) % Lymph % (Auto) (25.0-50.0) % Mcdonald % (Auto) (2.0-11.0) % Eos % (Auto) (0.0-4.0) % Baso % (Auto) (0.2-1.2) % Sodium (136-145) mmol/L Potassium (3.5-5.1) mmol/L Chloride (98-107) mmol/L Carbon Dioxide (21-32) mmol/L Anion Gap (10-20) mmol/L BUN (7-18) mg/dL Creatinine (0.55-1.02) mg/dL Est Cr Clr Drug Dosing Estimated GFR (MDRD) Glucose (74-106) mg/dL POC Glucose 118 H (74-106) mg/dL Lactic Acid 1.9 (0.4-2.0) mmol/L Calcium (8.5-10.1) mg/dL Corrected Calcium (8.5-10.1) mg/dL Phosphorus (2.6-4.7) mg/dL Magnesium (1.8-2.4) mg/dL Total Bilirubin (0.2-1.0) mg/dL AST (15-37) U/L ALT (14-59) U/L Alkaline Phosphatase (46-116) U/L Creatine Kinase 260 H* (26-192) U/L Troponin I (<=0.056) ng/mL C-Reactive Protein (<=0.9) mg/dL Total Protein (6.4-8.2) g/dL Albumin (3.4-5.0) g/dL Globulin Albumin/Globulin Ratio Amylase (25-115) U/L 10/26/17 10/26/17 10/26/17 Range/Units 06:20 06:20 06:20 WBC 6.2 (4.0-10.0) x10^3/uL RBC 3.80 L (4.00-5.50) x10^6/uL Hgb 11.7 L D (12.0-16.0) g/dL Hct 34.7 (33.0-47.0) % MCV 91.3 (78.0-93.0) fL MCH 30.8 (26.0-32.0) pg MCHC 33.7 (32.0-36.0) g/dL RDW Coeff of Shanice 13.5 (10.0-15.0) % Plt Count 215 (130-400) x10^3/uL Neut % (Auto) 45.0 L (50.0-80.0) % Lymph % (Auto) 44.9 (25.0-50.0) % Mcdonald % (Auto) 7.8 (2.0-11.0) % Eos % (Auto) 2.1 (0.0-4.0) % Baso % (Auto) 0.2 (0.2-1.2) % Sodium 138 (136-145) mmol/L Potassium 3.6 (3.5-5.1) mmol/L Chloride 103 (98-107) mmol/L Carbon Dioxide 25 (21-32) mmol/L Anion Gap 13.6 (10-20) mmol/L BUN 9 (7-18) mg/dL Creatinine 0.8 (0.55-1.02) mg/dL Est Cr Clr Drug Dosing 69.83 Estimated GFR (MDRD) > 60 Glucose 124 H (74-106) mg/dL POC Glucose (74-106) mg/dL Lactic Acid 2.0 (0.4-2.0) mmol/L Calcium 8.2 L (8.5-10.1) mg/dL Corrected Calcium 8.52 (8.5-10.1) mg/dL Phosphorus (2.6-4.7) mg/dL Magnesium (1.8-2.4) mg/dL Total Bilirubin 0.3 (0.2-1.0) mg/dL AST 66 H (15-37) U/L ALT 81 H (14-59) U/L Alkaline Phosphatase 53 (46-116) U/L Creatine Kinase 315 H* (26-192) U/L Troponin I (<=0.056) ng/mL C-Reactive Protein (<=0.9) mg/dL Total Protein 8.0 (6.4-8.2) g/dL Albumin 3.6 (3.4-5.0) g/dL Globulin 4.4 Albumin/Globulin Ratio 0.82 Amylase (25-115) U/L 10/26/17 10/26/17 Range/Units 06:20 06:20 WBC (4.0-10.0) x10^3/uL RBC (4.00-5.50) x10^6/uL Hgb (12.0-16.0) g/dL Hct (33.0-47.0) % MCV (78.0-93.0) fL MCH (26.0-32.0) pg MCHC (32.0-36.0) g/dL RDW Coeff of Shanice (10.0-15.0) % Plt Count (130-400) x10^3/uL Neut % (Auto) (50.0-80.0) % Lymph % (Auto) (25.0-50.0) % Mcdonald % (Auto) (2.0-11.0) % Eos % (Auto) (0.0-4.0) % Baso % (Auto) (0.2-1.2) % Sodium (136-145) mmol/L Potassium (3.5-5.1) mmol/L Chloride (98-107) mmol/L Carbon Dioxide (21-32) mmol/L Anion Gap (10-20) mmol/L BUN (7-18) mg/dL Creatinine (0.55-1.02) mg/dL Est Cr Clr Drug Dosing Estimated GFR (MDRD) Glucose (74-106) mg/dL POC Glucose (74-106) mg/dL Lactic Acid (0.4-2.0) mmol/L Calcium (8.5-10.1) mg/dL Corrected Calcium (8.5-10.1) mg/dL Phosphorus 4.2 (2.6-4.7) mg/dL Magnesium 1.6 L (1.8-2.4) mg/dL Total Bilirubin (0.2-1.0) mg/dL AST (15-37) U/L ALT (14-59) U/L Alkaline Phosphatase (46-116) U/L Creatine Kinase (26-192) U/L Troponin I < 0.017 (<=0.056) ng/mL C-Reactive Protein (<=0.9) mg/dL Total Protein (6.4-8.2) g/dL Albumin (3.4-5.0) g/dL Globulin Albumin/Globulin Ratio Amylase (25-115) U/L Med Orders - Current: Current Medications Bupropion HCl (Wellbutrin Xl) 150 mg PO DAILY [facility] Last Admin: 10/26/17 07:51 Dose: 150 mg Cholecalciferol (Vitamin D3) 5,000 units PO DAILY [facility] Last Admin: 10/26/17 07:49 Dose: 5,000 units Clonazepam (Klonopin) 0.5 mg PO BID PRN PRN Reason: Anxiety Last Admin: 10/25/17 23:36 Dose: 0.5 mg Cyclobenzaprine HCl (Flexeril) 10 mg PO DAILY PRN PRN Reason: Muscle Spasm Last Admin: 10/25/17 23:37 Dose: 10 mg Folic Acid (Folic Acid) 1 mg PO DAILY [facility] Last Admin: 10/26/17 07:51 Dose: 1 mg Furosemide (Lasix) 20 mg PO DAILY [facility] Last Admin: 10/26/17 07:51 Dose: 20 mg Gabapentin (Neurontin) 1,200 mg PO TID [facility] Last Admin: 10/26/17 11:36 Dose: 1,200 mg Lactated Ringer's (Ringers, Lactated) 1,000 mls @ 125 mls/hr IV ASDIRECTED [facility] Last Admin: 10/26/17 10:11 Dose: 125 mls/hr Ibuprofen (Motrin) 800 mg PO Q6H PRN PRN Reason: PAIN Lisinopril (Prinivil) 10 mg PO BEDTIME [facility] Last Admin: 10/25/17 23:37 Dose: 10 mg Metformin HCl (Glucophage) 500 mg PO BIDMEALS [facility] Last Admin: 10/26/17 07:52 Dose: 500 mg Morphine Sulfate (Morphine) 2 mg IVPUSH Q2H PRN PRN Reason: Pain Last Admin: 10/26/17 07:04 Dose: 2 mg Biotin 1mg (Own (Supply)) 1 mg PO DAILY [facility] Last Admin: 10/26/17 10:59 Dose: 1 mg Potassium Gluconate (595mg (Own Supply)) 0 mg PO BEDTIME [facility] Ondansetron HCl (Zofran) 4 mg IVPUSH Q8H PRN PRN Reason: Nausea Last Admin: 10/26/17 07:06 Dose: 4 mg Oxycodone/Acetaminophen (Percocet 325-5 Mg) 1 tab PO Q6H PRN PRN Reason: Pain Last Admin: 10/26/17 11:36 Dose: 1 tab Pantoprazole Sodium (Protonix) 40 mg PO BIDAC JOSE Last Admin: 10/26/17 10:40 Dose: 40 mg Polyethylene Glycol (Miralax) 17 gm PO DAILY PRN PRN Reason: Constipation Senna/Docusate Sodium (Senna Plus) 1 tab PO BID PRN PRN Reason: Constipation Sodium Chloride (Saline Flush) 10 ml FLUSH ASDIRECTED PRN PRN Reason: Keep Vein Open Last Admin: 10/25/17 19:54 Dose: 10 ml Topiramate (Topamax) 50 mg PO BID [facility] Last Admin: 10/26/17 07:52 Dose: 50 mg Discontinued Medications Gabapentin (Neurontin) 1,200 mg PO TID [facility] Hydromorphone HCl (Dilaudid) 0.5 mg IVPUSH Q2H PRN PRN Reason: Pain (severe 7-10) Sodium Chloride (Normal Saline) 1,000 mls @ 999 mls/hr IV ONETIME ONE Stop: 10/25/17 17:26 Last Admin: 10/25/17 16:53 Dose: 999 mls/hr Sodium Chloride (Normal Saline) 1,000 mls @ 125 mls/hr IV ASDIRECTED [facility] Last Admin: 10/26/17 04:01 Dose: 125 mls/hr Magnesium Sulfate (Magnesium Sulfate 2 Gm In Water 50 Ml) 50 mls @ 25 mls/hr IV ONETIME ONE Stop: 10/26/17 11:51 Last Admin: 10/26/17 10:29 Dose: 25 mls/hr Lisinopril (Prinivil) 10 mg PO BEDTIME [facility] Metformin HCl (Glucophage) 500 mg PO BIDMEALS [facility] Metoclopramide HCl (Reglan) 10 mg IVPUSH ONETIME ONE Stop: 10/26/17 13:47 Last Admin: 10/26/17 14:00 Dose: 10 mg Morphine Sulfate (Morphine) 2 mg IVPUSH ONETIME ONE Stop: 10/25/17 16:46 Last Admin: 10/25/17 17:00 Dose: 2 mg Ondansetron HCl (Zofran) 4 mg IVPUSH ONETIME ONE Stop: 10/25/17 16:27 Last Admin: 10/25/17 16:57 Dose: 4 mg Topiramate (Topamax) 50 mg PO BID JOSE - Exam Quality Assessment: Supplemental Oxygen General: Alert, Oriented HEENT: Pupils Equal, Pupils Reactive, EOMI, Mucous Membr. Moist/[place] Neck: Supple Lungs: Clear to Auscultation, Normal Respiratory Effort GI/Abdominal Exam: Normal Bowel Sounds, Soft, Non-Tender, No Organomegaly, No Distention, No Abnormal Bruit, No Mass, Pelvis Stable (Female) Exam: Deferred Extremities: Normal Inspection, Normal Range of Motion, Non-Tender, No Pedal Edema, Normal Capillary Refill Peripheral Pulses: 4+: Radial (L), Radial (R) Skin: Warm, Dry, Intact Neurological: No New Focal Deficit Psy/Mental Status: Alert, Normal Affect, Normal Mood - Problem List & Annotations (1) Abdominal pain SNOMED Code(s): 03490830 Code(s): R10.9 - UNSPECIFIED ABDOMINAL PAIN Status: Acute Current Visit: Yes (2) Lactic acidosis SNOMED Code(s): 36476500 Code(s): E87.2 - ACIDOSIS Status: Acute Priority: Medium Current Visit : Yes Onset Date: ~10/25/17 - Problem List Review Problem List Initiated/Reviewed/Updated: Yes - My Orders Last 24 Hours: My Active Orders 10/26/17 09:24 Chest 2V [CR] Stat 10/26/17 09:26 EKG Documentation Completion [RC] STAT 10/26/17 10:00 Lactated Ringers [Ringers, Lactated] 1,000 ml IV ASDIRECTED 10/26/17 10:15 Pantoprazole [ProTONIX] 40 mg PO BIDAC 10/27/17 05:11 CPK [CREATINE KINASE,CK] [CHEM] AM LACTIC ACID [CHEM] AM MAGNESIUM [CHEM] AM
[2017-10-26] MEDS ORDERED: Lisinopril 10 MG Tab PO SCH (20:00)
[2017-10-26] MEDS ORDERED: POTASSIUM GLUCONATE 595 MG PO SCH (20:00)
[2017-10-26] MEDS: Lisinopril 10 MG Tab PO SCH (20:15)
[2017-10-26] MEDS: ClonazePAM 0.5 MG Tab PO PRN (20:22)
[2017-10-26] MEDS: Cyclobenzaprine 10 MG Tab PO PRN (20:22)
[2017-10-27] MEDS: Acetaminophen/oxyCODONE 325-5 MG Tab PO PRN ×2 (00:05→09:06)
[2017-10-27] MEDS: Lactated Ringers 1,000 ML IV SCH (02:09)
[2017-10-27] MEDS: Pantoprazole 40 MG Tab.CR PO SCH (06:43)
[2017-10-27 07:33] VITALS: BP 120/69
[2017-10-27] MEDS: Gabapentin 300 MG Cap PO SCH (07:54)
[2017-10-27] MEDS: buPROPion 150 MG Tab.ER PO SCH (07:55)
[2017-10-27] MEDS: metFORMIN 500 MG Tab PO SCH (07:56)
[2017-10-27] MEDS: Furosemide 20 MG Tab PO SCH (07:56)
[2017-10-27] MEDS: Cholecalciferol (Vitamin D3) 1,000 Unit Tab PO SCH (07:57)
[2017-10-27] MEDS: Folic Acid 1 MG Tab PO SCH (07:57)
[2017-10-27] MEDS: Topiramate 50 MG Tab PO SCH (07:57)
[2017-10-27] MEDS: BIOTIN 1 MG PO SCH (10:33)
== END 2017-10-27 10:25 | disposition home or self-care (01) ==
LOC: VM.ED 16:21 → VM.MS 18:44
PROVIDERS: ADMIT Nurse Practitioner Family; ATTEND Nurse Practitioner Family
DX: R10.9 Unspecified abdominal pain (principal); E87.2 Acidosis; R07.9 Chest pain, unspecified; R16.0 Hepatomegaly, not elsewhere classified; E88.89 Other specified metabolic disorders; Z79.899 Other long term (current) drug therapy; Z88.8 Allergy status to other drugs, medicaments and biological substances; Z88.0 Allergy status to penicillin; Z91.040 Latex allergy status; Z79.84 Long term (current) use of oral hypoglycemic drugs
CPT/HCPCS: 36415; 70450; 71046; 74176; 80053; 81001; 82150; 82550; 82962; 83605; 83735; 84100; 84484; 85025; 86140; 87040; 93005; 94760; 96361; 96365; 96366; 96374; 96375; 96376; 99285; A9270-GY; G0378; J2270; J2405; J2765; J3475; J7030; J7050; J7120

== ENCOUNTER 2021-07-19 18:03 | Emergency (ER) | payer OTHER, MEDICARE ==
[2021-07-19] MEDS ORDERED: Ketorolac 30 MG/ML SDV IM ONE (18:37)
[2021-07-19] MEDS ORDERED: Orphenadrine 60 MG/2 ML Inj IM ONE (18:37)
[2021-07-19] MEDS ORDERED: diphenhydrAMINE 50 MG/ML SDV IM ONE (18:44)
[2021-07-19] MEDS ORDERED: Ondansetron 4 MG Tab.DIS PO ONE (19:05)
[2021-07-19] MEDS ORDERED: fentaNYL 50 MCG/ML SDV IVPUSH ONE (20:13)
[2021-07-19] MEDS ORDERED: Ondansetron 4 MG/2 ML SDV IVPUSH ONE (20:14)
[2021-07-19 22:21] VITALS: BP 169/102; PULSE 74
== END 2021-07-19 20:41 | disposition home or self-care (01) ==
LOC: VM.ED 18:03
DX: G43.909 Migraine, unspecified, not intractable, without status migrainosus (principal); I11.9 Hypertensive heart disease without heart failure; Z88.0 Allergy status to penicillin; Z91.048 Other nonmedicinal substance allergy status; Z91.040 Latex allergy status; Z88.8 Allergy status to other drugs, medicaments and biological substances; Z88.5 Allergy status to narcotic agent
CPT/HCPCS: 96372; 96374; 96375; 99283-25; 99284; A9270-GY; J1200; J1885; J2360; J2405; J3010

== ENCOUNTER 2022-03-29 15:40 | Emergency (ER) | payer MEDICARE, OTHER ==
[2022-03-29] MEDS ORDERED: fentaNYL 50 MCG/ML SDV IVPUSH ONE (16:48)
[2022-03-29] MEDS ORDERED: Ondansetron 4 MG/2 ML SDV IVPUSH ONE (17:15)
[2022-03-29 17:27] LABS: CHLORIDE,CL 97 mmol/L (98-107); SODIUM,NA 136 mmol/L (136-145)
[2022-03-29 17:28] LABS: ANION GAP 13.2 mmol/L (5-15); ESTIMATED GFR 108 mL/min (>=60)
[2022-03-29] MEDS ORDERED: cefTRIAXone 2 GM Vial IVPUSH ONE (18:15)
[2022-03-29] MEDS ORDERED: Sodium Chloride 0.9% 1,000 ML IV ONE (18:15)
[2022-03-29] MEDS ORDERED: Iopamidol 612 MG/ML 100 ML Bottle IVPUSH ONE (19:24)
[2022-03-29] MEDS ORDERED: Ketorolac 30 MG/ML SDV IVPUSH ONE (19:50)
[2022-03-29] MEDS ORDERED: Phenazopyridine 95 MG Tab PO STA (20:11)
[2022-03-29 20:37] VITALS: BP 152/86; PULSE 85
== END 2022-03-29 20:34 | disposition home or self-care (01) ==
LOC: EDUNIT# → VM.ED 15:40
DX: N39.0 Urinary tract infection, site not specified (principal); R31.9 Hematuria, unspecified; I10 Essential (primary) hypertension; E11.42 Type 2 diabetes mellitus with diabetic polyneuropathy; E66.9 Obesity, unspecified; Z88.0 Allergy status to penicillin; Z91.018 Allergy to other foods; Z91.048 Other nonmedicinal substance allergy status; Z88.8 Allergy status to other drugs, medicaments and biological substances; Z88.6 Allergy status to analgesic agent; Z88.5 Allergy status to narcotic agent; Z91.040 Latex allergy status; Z79.899 Other long term (current) drug therapy
CPT/HCPCS: 36415; 74177; 80053; 81001; 81025; 82150; 83690; 85025; 86140; 87086; 87088; 87186; 96361; 96374; 96375; 99284; 99284-25; A9270-GY; J0696; J1885; J2405; J3010; J7030; Q9967

== ENCOUNTER 2023-01-18 20:23 | Emergency (ER) | payer OTHER ==
[2023-01-18 20:42] VITALS: PULSE 78
[2023-01-18] MEDS: valACYclovir 1,000 MG Tab PO SCH (21:22)
[2023-01-18 21:39] VITALS: BP 149/99
== END 2023-01-18 21:28 | disposition home or self-care (01) ==
LOC: VM.ED 20:23
DX: B02.9 Zoster without complications (principal); I10 Essential (primary) hypertension; E11.42 Type 2 diabetes mellitus with diabetic polyneuropathy; E66.9 Obesity, unspecified; Z68.29 Body mass index [BMI] 29.0-29.9, adult; Z88.0 Allergy status to penicillin; Z91.048 Other nonmedicinal substance allergy status; Z88.8 Allergy status to other drugs, medicaments and biological substances; Z88.5 Allergy status to narcotic agent; Z88.6 Allergy status to analgesic agent; Z91.040 Latex allergy status; Z91.018 Allergy to other foods; Z79.899 Other long term (current) drug therapy; Z79.84 Long term (current) use of oral hypoglycemic drugs
CPT/HCPCS: 99283; 99284; A9270

== ENCOUNTER 2023-02-22 17:06 | Emergency (ER) | payer OTHER ==
[2023-02-22 17:31] VITALS: BP 142/88; PULSE 89
[2023-02-22] MEDS ORDERED: Ketorolac 30 MG/ML SDV IM ONE (18:53)
== END 2023-02-22 19:10 | disposition home or self-care (01) ==
LOC: VM.ED 17:06
DX: S73.102A Unspecified sprain of left hip, initial encounter (principal); I10 Essential (primary) hypertension; E11.40 Type 2 diabetes mellitus with diabetic neuropathy, unspecified; E66.9 Obesity, unspecified; Z68.30 Body mass index [BMI] 30.0-30.9, adult; Z87.891 Personal history of nicotine dependence; Z88.0 Allergy status to penicillin; Z88.8 Allergy status to other drugs, medicaments and biological substances; Z88.5 Allergy status to narcotic agent; Z91.040 Latex allergy status; Z91.018 Allergy to other foods; Z91.048 Other nonmedicinal substance allergy status; Z79.899 Other long term (current) drug therapy; Z79.84 Long term (current) use of oral hypoglycemic drugs; W00.9XXA Unspecified fall due to ice and snow, initial encounter
CPT/HCPCS: 72110; 96372; 99283; J1885

== ENCOUNTER 2023-08-07 17:27 | Emergency (ER) | payer OTHER ==
[2023-08-07 18:18] LABS: BASOPHILS PERCENT AUTO 0.3 % (0.2-1.2); EOSINOPHILS ABSOLUTE AUTO 0.1 x10^3/uL (0.0-0.5); EOSINOPHILS PERCENT AUTO 0.6 % (0.0-4.0); HEMATOCRIT 32.2 % (33.0-47.0); HEMOGLOBIN 11.2 g/dL (12.0-16.0); IMMATURE GRAN ABSOLUTE AUTO 0.01 x10^3/uL (0.00-0.07); LYMPHOCYTES ABSOLUTE AUTO 2.6 x10^3/uL (1.0-4.8); LYMPHOCYTES PERCENT AUTO 24.5 % (25.0-50.0); MEAN CORPUSCULAR HEMOGLOBIN 30.4 pg (26.0-32.0); MEAN CORPUSCULAR HGB CONC 34.8 g/dL (32.0-36.0); MEAN CORPUSCULAR VOLUME 87.3 fL (78.0-93.0); MONOCYTES ABSOLUTE AUTO 0.9 x10^3/uL (0.0-0.8); MONOCYTES PERCENT AUTO 8.3 % (2.0-11.0); NEUTROPHILS ABSOLUTE AUTO 7.1 x10^3/uL (1.8-7.7); NEUTROPHILS PERCENT AUTO 66.2 % (50.0-80.0); PLATELET COUNT,PLT 268 x10^3/uL (130-400); RED BLOOD CELL COUNT 3.69 x10^6/uL (4.00-5.50); WHITE BLOOD CELL COUNT,WBC 10.8 x10^3/uL (4.0-10.0)
[2023-08-07] MEDS: LORazepam 2 MG/ML SDV IM ONE (18:20)
[2023-08-07 18:43] LABS: PTT,PARTIAL THROMBOPLSTIN TIME 27.5 SEC (21.9-33.8)
[2023-08-07 18:45] LABS: APPEARANCE,URINE CLOUDY (CLEAR); BILIRUBIN,URINE LARGE (NEGATIVE); COLOR,URINE YELLOW (YELLOW); GLUCOSE,URINE NEGATIVE (NEGATIVE); KETONES,URINE 40 mg/dL (NEGATIVE); LEUKOCYTE ESTERASE,URINE NEGATIVE (NEGATIVE); NITRITE,URINE NEGATIVE (NEGATIVE); OCCULT BLOOD,URINE NEGATIVE (NEGATIVE); PH,URINE 5.5 (5.0-8.0); PROTEIN,URINE NEGATIVE (NEGATIVE); UROBILINOGEN,URINE 0.2 EU/dL (0.2)
[2023-08-07 18:47] LABS: A/G RATIO 0.96; ALANINE AMINOTRANSFERASE,ALT 42 U/L (14-59); ALBUMIN 4.4 g/dL (3.4-5.0); ALKALINE PHOSPHATASE 79 U/L (46-116); ASPARTATE AMNIOTRANSFERASE,AST 70 U/L (15-37); BILIRUBIN TOTAL 0.6 mg/dL (0.2-1.0); BLOOD UREA NITROGEN,BUN 17 mg/dL (7-18); C-REACTIVE PROTEIN 1.48 mg/dL (<=0.50); CALCIUM 9.4 mg/dL (8.5-10.1); CARBON DIOXIDE,CO2 22 mmol/L (21-32); CHLORIDE,CL 96 mmol/L (98-107); GLUCOSE RANDOM 100 mg/dL (70-99); MAGNESIUM 1.6 mg/dL (1.8-2.4); POTASSIUM,K 3.9 mmol/L (3.5-5.1); SODIUM,NA 137 mmol/L (136-145); TSH ULTRASENSITIVE 0.247 uIU/mL (0.358-3.74)
[2023-08-07 18:51] LABS: AMPHETAMINES SCREEN, URINE NEGATIVE (NEGATIVE); BARBITURATE SCREEN,URINE NEGATIVE (NEGATIVE); OXYCODONE SCREEN,URINE POSITIVE (NEGATIVE); THC SCREEN,URINE 50 NG/ML POSITIVE (NEGATIVE)
[2023-08-07 18:52] LABS: BENZODIAZEPINES SCREEN,URINE NEGATIVE (NEGATIVE); BUPRENORPHINE SCREEN,URINE NEGATIVE (NEGATIVE); COCAINE METABOLITES,URINE NEGATIVE (NEGATIVE); METHADONE SCREEN, URINE NEGATIVE (NEGATIVE); METHAMPHETAMINE SCREEN, URINE NEGATIVE (NEGATIVE); PCP SCREEN,URINE NEGATIVE (NEGATIVE)
[2023-08-07 18:53] LABS: ANION GAP 22.9 mmol/L (5-15); ESTIMATED GFR 70 mL/min (>=60)
[2023-08-07 18:54] LABS: ETHANOL BLOOD MEDICAL < 3 mg/dL (0-3)
[2023-08-09 18:09] VITALS: BP 144/72; PULSE 102
== END 2023-08-07 19:13 | disposition home or self-care (01) ==
LOC: VM.ED 17:27
DX: F41.9 Anxiety disorder, unspecified (principal); I10 Essential (primary) hypertension; E11.9 Type 2 diabetes mellitus without complications; E66.9 Obesity, unspecified; Z79.84 Long term (current) use of oral hypoglycemic drugs; Z79.899 Other long term (current) drug therapy; Z91.040 Latex allergy status; Z91.048 Other nonmedicinal substance allergy status; Z91.018 Allergy to other foods; Z88.5 Allergy status to narcotic agent; Z88.6 Allergy status to analgesic agent; Z88.8 Allergy status to other drugs, medicaments and biological substances; Z88.0 Allergy status to penicillin; Z68.25 Body mass index [BMI] 25.0-25.9, adult
CPT/HCPCS: 36415; 70450; 72125; 80053; 80305-QW; 80307; 81003; 82140; 83735; 84443; 85025; 85610; 85730; 86140; 96372; 99284; J2060